=== PATIENT | male | born 1950 | race African-American/Black ===

== ENCOUNTER 2019-01-14 22:19 | Inpatient (IN) | payer BC, MEDICAID ==
[~2019-01-14] VITALS: Ht 182.9 cm; Wt 108.9 kg
--- NOTE | 2019-01-14 22:19 | NUR ---
Patient ANN HARKINS from [facility], transferred to bed 9. RN evaluating patient at bedside.
[2019-01-14 22:20] VITALS: BP 128/52
--- NOTE | 2019-01-14 22:25 | NUR ---
68/M BIBA FROM [facility] FOR POSSIBLE G-TUBE DISPLACEMENT. PT ARRIVES TO ED, APHASIC, GCS 10 ([id number]), BEDBOUND WITH R SIDED DEFICIT AND L SIDED WEAKNESS FROM PREVIOUS CVA, PERRL. SKIN APPROPRIATE TO ETHNICITY, WARM AND DRY. SPO2 95% ON RA, RR 25 EVEN AND SLIGHTLY LABORED WITH GRUNTING. LUNG SOUNDS CLEAR BL. GTUBE NOTED, BS ACTIVE X4, ABD FIRM ROUND LARGE AND DISTENDED. HX CVA, HTN, HLD, GOUT
[2019-01-14] MEDS ORDERED: HYDR100T79 PEG (22:51)
[2019-01-14] MEDS ORDERED: ATOR40TA PEG (22:51)
[2019-01-14] MEDS ORDERED: AMLO5TAB PEG (22:51)
[2019-01-14] MEDS ORDERED: MODA200T52 PEG (22:51)
[2019-01-14] MEDS ORDERED: METO50TE2 PEG (22:51)
[2019-01-14] MEDS ORDERED: CLOP75TA55 PEG (22:51)
[2019-01-14] MEDS ORDERED: LORA-476 PEG (22:51)
[2019-01-14] MEDS ORDERED: ASPI-1718 PEG (22:51)
--- NOTE | 2019-01-14 22:55 | NUR ---
Patient taken to CT scan via gurney by veronica, accompanied by RN.
--- NOTE | 2019-01-14 23:04 | NUR ---
Patient returned from CT scan. RN re-evaluating patient at bedside.
--- NOTE | 2019-01-14 23:23 | NUR ---
Pt restless in gurney, taking off gown and cables. soiled diaper removed, hilario care provided with assistance of java analyst. Pt placed into new gown, placed into position of comfort. Warm blanket provided.
[2019-01-14] MEDS ORDERED: NACL 0.9% 1,000 ML IV ONE (23:30)
[2019-01-14 23:36] LABS: HEMOGLOBIN 14.1 g/dL (12.0-18.0); MEAN CORPUSCULAR HEMOGLOBIN 30 pg (27-31); MEAN CORPUSCULAR HGB CONC 32 g/dL (33-37); MEAN CORPUSCULAR VOLUME 92.4 fL (80-94); PLATELET COUNT (AUTO) 327 K/uL (140-450); RED BLOOD CELL COUNT(AUTO) 4.76 MIL/uL (4.20-6.10); RED CELL DISTRIBUTION WIDTH 14.7 % (11.6-13.7); WHITE BLOOD COUNT (AUTO) 12.8 K/uL (4.8-10.8)
--- NOTE | 2019-01-14 23:40 | NUR ---
PT WITH JEFF ALLEN MD MADE AWARE. EKG TO BE ORDERED, 1L NS BOLUS TO BE GIVEN.
[2019-01-14 23:47] LABS: LYMPHOCYTES % (MANUAL) 6 % (20-46); MONOCYTES % (MANUAL) 1 % (5-12)
[2019-01-14 23:48] LABS: ANION GAP 13.6 (8-16); CARBON DIOXIDE 28.8 mmol/L (21-32); CREATININE 1.7 mg/dL (0.7-1.3); POTASSIUM 4.4 mmol/L (3.5-5.1)
--- NOTE | 2019-01-14 23:49 | NUR ---
PT LAYING IN BED, SPO2 98% ON RA, RR 21 EVEN AND SLIGHTLY LABORED WITH GRUNTING, PT MILDLY RESTLESS, SWINGING LEFT ARM OCCASIONALLY. VS NOTED.
[2019-01-14 23:53] LABS: TOTAL BILIRUBIN 0.7 mg/dL (0.0-1.0)
--- NOTE | 2019-01-15 | NUR ---
PT GTUBE IN PLACE VERIFIED WITH AUSCULATION AND 30ML RESIDUAL, ABLE TO FLUSH.
--- NOTE | 2019-01-15 01:40 | NUR ---
PT LAYING IN BED, LETHARGIC, RR EVEN WITH MILD TACHYPNEA. PT REMAINS WITH BIGEMINY. ER MD MADE AWARE. PER ER MD, AMIODARONE NOT INDICATED AT THIS TIME. ANOTHER 1L NS BOLUS ORDERED, WILL CARRY OUT
[2019-01-15] MEDS ORDERED: NACL 0.9% 1,000 ML IV ONE (01:55)
--- NOTE | 2019-01-15 02:30 | NUR ---
Dr. Chan evaluating patient at bedside.
[2019-01-15] MEDS ORDERED: cefTRIAXone 1,000 MG in DEXT 5% MINI-BAG PLUS 50 ML IV ONE (02:35)
[2019-01-15] MEDS ORDERED: DOCUSATE SODIUM 100 MG GELCAP PO PRN (02:35)
[2019-01-15] MEDS ORDERED: ONDANSETRON 4 MG/2 ML VIAL IM/IVP PRN (02:35)
[2019-01-15] MEDS ORDERED: MORPHINE SULFATE 2 MG/ML SYR IVP PRN (02:35)
[2019-01-15] MEDS ORDERED: HYDROcodone/APAP 5/325 MG 1 TAB TAB PO PRN (02:35)
[2019-01-15] MEDS ORDERED: ACETAMINOPHEN 325 MG TAB PO PRN (02:35)
--- NOTE | 2019-01-15 02:40 | NUR ---
environmental services tech at bedside.
[2019-01-15] MEDS ORDERED: cefTRIAXone 1,000 MG VIAL ONE (02:47)
[2019-01-15 02:54] LABS: APPEARANCE,URINE HAZY (CLEAR); BILIRUBIN,URINE NEGATIVE (NEGATIVE); BLOOD, URINE 2+ (NEGATIVE); COLOR,URINE YELLOW (YELLOW); LEUKOCYTE ESTERASE ,URINE 1+ (NEGATIVE); NITRITE, URINE NEGATIVE (NEGATIVE); UGLUCOSE NEGATIVE (NEGATIVE)
[2019-01-15 03:04] LABS: BARBITURATE, URINE NEG. ng/ml (NEG <=200); BENZODIAZEPINE, URINE NEG. ng/mL (NEG <=200); CANNABINOID, URINE NEG. ng/mL (NEG <=50); COCAINE, URINE NEG. ng/mL (NEG <=300); OPIATE, URINE NEG. ng/mL (NEG <=2000); PHENCYCLIDINE SCREEN,URINE NEG. ng/mL (NEG <=25)
[2019-01-15 03:09] LABS: RBC,URINE 0-5 (RARE) /HPF (0-5); WBC,URINE 60-80 /HPF (0-5)
--- NOTE | 2019-01-15 03:15 | NUR ---
Patient will be admitted to care of DR. GARCIA. Admited to TELE. Will go to room 124A. Belongings list completed. Report to ANABELLA LINCOLN.
[2019-01-15 03:20] VITALS: BP 136/94
[2019-01-15] MEDS ORDERED: NACL 0.45% 1,000 ML IV SCH (03:20)
--- NOTE | 2019-01-15 03:20 | NUR ---
RECEIVED REPORT FROM ER NURSE ROMAN. NO SOB NO S/S OF DISTRESS ON RA. IV NOTED RAC 20G. PT HAS RIGHT SIDE PARALYSIS. BED LOWERED CALL LIGHT WITHIN REACH WILL CONTINUE TO MONITOR.
[2019-01-15 03:22] LABS: CHOL/HDL RATIO 3.6 (1-4.5); THYROID STIMULATING HORMONE 4.3 uIU/mL (0.34-3.74)
[2019-01-15 03:23] LABS: PROTHROMBIN TIME 9.5 secs (10.8-13.4)
[2019-01-15] MEDS ORDERED: METO50TA21 PEG (03:33)
[2019-01-15] MEDS ORDERED: ALBUTEROL SULFATE/IPRATROPIU 3 ML SOL IH PRN (04:15)
[2019-01-15] MEDS: DEXT 5% / NACL 0.45% 1,000 ML IV SCH ×2 (04:39→08:05)
[2019-01-15] MEDS ORDERED: LORazepam 1 MG TAB PEG PRN (05:00)
[2019-01-15] MEDS ORDERED: LORazepam 1 MG TAB PEG SCH (05:00)
[2019-01-15] MEDS: hydrALAZINE 25 MG TAB PEG SCH ×4 (06:32→23:43)
--- NOTE | 2019-01-15 07:21 | NUR ---
ENDORSED REPORT TO DAYSHIFT NURSE AT BEDSIDE FOR CONTINUITY OF CARE.
--- NOTE | 2019-01-15 07:22 | NUR ---
RECEIVED BEDSIDE REPORT FROM LEARNING SOLUTIONS SPECIALIST NURSE. PATIENT IS SLEEPING. NO SIGNS OF DISTRESS ON RA. PATIENT IS APHASIC. BEDBOUND, FALL RISK PROTOCOL IN PLACE. R SIDE PARALYSIS. GTUBE IN PLACE. NO FEEDING. NPO EXCEPT MEDS. SKIN IS INTACT. R AC 20G D5 1/2NS AT 80. CLEAN, DRY AND INTACT. PATIENT IS INCONTINENT. BED IN LOW POSITION. CALL LIGHT WITHIN REACH. WILL CONTINUE TO MONITOR THE PATIENT.
[2019-01-15 08:00] VITALS: BP 136/88
[2019-01-15 08:01] LABS: ANION GAP 13.7 (8-16); CARBON DIOXIDE 25.5 mmol/L (21-32); CREATININE 1.5 mg/dL (0.7-1.3); MAGNESIUM 2.7 mg/dL (1.8-2.4); PHOSPHORUS 3.2 mg/dL (2.5-4.9); POTASSIUM 4.2 mmol/L (3.5-5.1)
[2019-01-15 08:15] LABS: HEMATOCRIT 39.1 % (36-52); HEMOGLOBIN 12.5 g/dL (12.0-18.0); MEAN CORPUSCULAR HEMOGLOBIN 30 pg (27-31); MEAN CORPUSCULAR HGB CONC 32 g/dL (33-37); MEAN CORPUSCULAR VOLUME 91.9 fL (80-94); PLATELET COUNT (AUTO) 279 K/uL (140-450); RED BLOOD CELL COUNT(AUTO) 4.26 MIL/uL (4.20-6.10); RED CELL DISTRIBUTION WIDTH 14.5 % (11.6-13.7); WHITE BLOOD COUNT (AUTO) 13.9 K/uL (4.8-10.8)
--- NOTE | 2019-01-15 08:45 | NUR ---
GOT TELEPHONE CONSENT FROM BROTHER, CULLEN. FOR GURVINDER TO SEND MEDICAL RECORDS. CHARGE NURSE MARIA DEL CARMEN, WAS SECOND ASSEMBLY MACHINE TOOL SETTER
[2019-01-15] MEDS ORDERED: LACTOBACILLUS RHAMNOSUS GG 1 EACH CAP PO SCH (09:00)
[2019-01-15 09:12] LABS: LYMPHOCYTES % (MANUAL) 5 % (20-46); MONOCYTES % (MANUAL) 7 % (5-12)
--- NOTE | 2019-01-15 09:24 | NUR ---
PATIENT HAS BEEN SCREENED AND CATEGORIZED HIGH NUTRITION RISK. PATIENT WILL BE SEEN WITHIN 1-2 DAYS OF ADMISSION. 01/15/19-01/16/[address]
[2019-01-15] MEDS: CLOPIDOGREL 75 MG TAB PEG SCH (09:54)
[2019-01-15] MEDS: ASPIRIN 81 MG TAB.CHEW PEG SCH (09:55)
[2019-01-15] MEDS: METOPROLOL 50 MG TAB PEG SCH ×2 (09:55→20:39)
[2019-01-15] MEDS: amLODIPine 5 MG TAB PEG SCH ×2 (09:55→20:39)
--- NOTE | 2019-01-15 10:10 | NUR ---
CHECKED FOR GTUBE PLACEMENT W STUDENT NURSE. SWOOSH HEARD. NO RESIDUAL. CRUSHED AND ADMINISTERED MEDS. FLUSHED BEFORE AND AFTER MED ADMINISTRATION. PATIENT TOLERATED WELL. HEPARIN GIVEN. PATIENT TOLERATED WELL. WILL CONTINUE TO MONITOR THE PATIENT. BED IN LOW POSITION. CALL LIGHT WITHIN REACH, WILL CONTINUE TO MONITOR.
--- NOTE | 2019-01-15 10:51 | NUR ---
GAVE ATIVAN. PATIENT WHEN AWOKEN BECOMES AGITATED AND PULLS ON LINES, REMOVES TELE MONITOR. WE NEED TO DO A CT OF HEAD. DR PINK SAID OK TO GIVE ATIVAN BEFORE CT OF HEAD
--- NOTE | 2019-01-15 11:00 | NUR ---
B/P IS 185/102. DR DAMON MADE AWARE. TOLD HIM I GAVE HIM ATIVAN FOR AGITATION AND TO HELP PATIENT GET CT OF HEAD DONE. HE SAID OK TO KEEP IT UNDER 200 AT THIS TIME IN CASE PATIENT IS HAVING A CVA. HE SAID TO WAIT FOR HEAD CT. DR PINK ALSO MADE AWARE OF B/P AND DR RUBIO RECOMMENDATIONS AT THIS TIME.
--- NOTE | 2019-01-15 11:46 | NUR ---
PATIENT IS BACK FROM CT SCAN. HE WAS MOVING A LITTLE DURING THE SCAN, PATIENT AGITATED WHEN TRANSFERRED TO THE CT MACHINE. PATIENT B/P WHEN BACK TO THE ROOM 163/90. WILL CONTINUE TO MONITOR THE PATIENT. PATIENT SLEEPING AT THIS TIME
[2019-01-15 12:00] VITALS: BP 163/90
[2019-01-15] MEDS ORDERED: MAGNESIUM CITRATE 300 ML BTL PEG SCH (12:49)
[2019-01-15] MEDS ORDERED: ACETAMINOPHEN 650 MG/20.3 ML UDC PEG PRN (12:50)
--- NOTE | 2019-01-15 12:53 | NUR ---
PATIENT KEEPS PULLING OFF GOWN AND TELE MACHINE. KEEP REMINDING AND REORIENTING PATIENT THAT HE IS IN THE HOSPITAL AND NEEDS TO BE MONITORED. PATIENT BACK TO SLEEP
[2019-01-15] MEDS: PIPER/TAZO 3.375GM/D5W PREMIX 50 ML IV SCH ×2 (13:06→20:39)
--- NOTE | 2019-01-15 13:08 | NUR ---
CHECKED FOR GTUBE PLACEMENT USING SWOOSH. SWOOSH HEARD. CRUSHED AND ADMINISTERED MEDS. FLUSHED BEFORE AND AFTER. PATIENT TOLERATED WELL. WILL CONTINUE TO MONITOR THE PATIENT.
--- NOTE | 2019-01-15 13:33 | NUR ---
PATIENT PULLED OUT GTUBE. NEW GTUBE PLACED BY DR PARIKH. DR PINK TO ORDER KUB TO CHECK FOR PLACEMENT. PHARMACY ASSOCIATE AT BEDSIDE. WILL GIVE ATIVAN BEFORE ECHO
--- NOTE | 2019-01-15 13:35 | NUR ---
PATIENT CONTINUES TO TRY AND PULL OUT TUBES AND OTHER MEDICAL DEVICES LIKE TELE MONITOR. LE MITTEN RESTRAINT PLACED ON PATIENT. R ARM IS UNABLE TO MOVE. TRIED OTHER ALTERNATIVES LIKE DISTRACTION, REORIENTATION, TOILETING, PATIENT STILL CONTINUES TO PULL OUT LINES.
--- NOTE | 2019-01-15 13:47 | NUR ---
01/15/19 RD INITIAL ASSESSMENT COMPLETED PLEASE REFER TO NUTRITION ASSESSMENT UNDER CARE ACTIVITY FOR ESTIMATED NUTRITIONAL NEEDS. RD RECOMMENDATIONS: 1.OSMOLITE 1.5 AT 60 ML/HR TO PROVIDE 1440 ML TOTAL VOLUME, 2160 KCAL, 90 GM OF PROTEIN, AND 1097 ML OF FREE WATER. CONSIDER 250 ML OF FREE WATER Q6H. --ADEQUATE TO MEET 97% OF ESTIMATED ENERGY NEEDS AND 100% OF ESTIMATED PROTEIN NEEDS. 2. RD WILL F/U 2-3 DAYS; HIGH RISK. NAGA NORIEGA, RD
[2019-01-15] MEDS ORDERED: LORazepam 2 MG/ML VIAL IVP SCH (13:50)
--- NOTE | 2019-01-15 15:00 | NUR ---
STUDENT PLACED CONDOM CATH ON PATIENT. DR PINK SAID OK TO PUT CONDOM CATH
[2019-01-15 16:00] VITALS: BP 166/80
--- NOTE | 2019-01-15 16:16 | NUR ---
PATIENT IS SLEEPING. WILL CONTINUE TO MONITOR. NO SIGNS OF DISTRESS
--- NOTE | 2019-01-15 18:33 | NUR ---
administered meds. patient tolerated well. will continue to monitor the patient.
--- NOTE | 2019-01-15 19:05 | NUR ---
GAVE BEDSIDE REPORT TO OCULAR CARE TECHNICIAN NURSE. PATIENT ENDORSED IN STABLE CONDITION
--- NOTE | 2019-01-15 19:06 | NUR ---
RECEIVED REPORT FROM DAY SHIFT NURSE DANIEL-RN AT BEDSIDE. PT APHASIC, ON ROOM AIR WITH RIGHT AC #20G RUNNING D6-NS0.45% @80ML/HR WITH RIGHT SIDED WEAKNESS AND LEFT HAND MITTEN RESTRAINT NON-BEHAVIORAL. G-TUBE IN PLACE WITH 20ML RESIDUAL. NO S/S OF RESPIRATORY DISTRESS OR DISCOMFORT NOTED AT THIS TIME. BED IN LOWEST POSITION, BED BREAKS ON, BOTH SIDE RAILS UP AND BOTH FALL AND ASPIRATION PRECAUTIONS IN PLACE. BEDSIDE TABLE AND CALL LIGHT ARE WITHIN REACH. WILL CONTINUE TO MONITOR.
[2019-01-15 20:00] VITALS: BP 165/79
--- NOTE | 2019-01-15 20:00 | NUR ---
VITAL SIGNS TAKEN AND TOLERATED WELL. ELEVATED BP NOTED. NO S/S OF RESPIRATORY DISTRESS OR DISCOMFORT NOTED AT THIS TIME. WILL CONTINUE TO MONITOR.
[2019-01-15] MEDS: ATORVASTATIN 20 MG TAB PEG SCH (20:39)
--- NOTE | 2019-01-15 20:40 | NUR ---
SCHEDULED MEDICATION GIVEN AND TOLERATED WELL. NO S/S OF RESPIRATORY DISTRESS OR DISCOMFORT NOTED AT THIS TIME. WILL CONTINUE TO MONITOR.
--- NOTE | 2019-01-15 21:00 | NUR ---
G-TUBE FEEDING OSMOLITE 1.5 RUNNING AT 20ML/HR WITH WATER FLUSHES AT 250ML Q6H. HOLD IF RESIDUAL ABOVE 200, CHECK AN HOUR LATER AND RESUME IF RESIDUAL <50ML. PT TOLERATING WELL. NO S/S OF RESPIRATORY DISTRESS OR DISCOMFORT NOTED AT THIS TIME. WILL CONTINUE TO MONITOR.
--- NOTE | 2019-01-15 23:00 | NUR ---
PT RESTING IN BED. NO S/S OF RESPIRATORY DISTRESS OR DISCOMFORT NOTED AT THIS TIME. WILL CONTINUE TO MONITOR.
[2019-01-15] MEDS: NACL 0.9% 1,000 ML IV SCH (23:24)
--- NOTE | 2019-01-15 23:43 | NUR ---
VITAL SIGNS TAKEN, SCHEDULED MEDICATION GIVEN AND TOLERATED WELL. NO S/S OF RESPIRATORY DISTRESS OR DISCOMFORT NOTED AT THIS TIME. WILL CONTINUE TO MONITOR.
[2019-01-16] VITALS (7 sets, daily range): BP systolic 150–180; BP diastolic 77–93
--- NOTE | 2019-01-16 02:00 | NUR ---
PT CONTINUES TO SLEEP IN BED. NO S/S OF RESPIRATORY DISTRESS OR DISCOMFORT NOTED AT THIS TIME. WILL CONTINUE TO MONITOR.
--- NOTE | 2019-01-16 04:00 | NUR ---
VITAL SIGNS TAKEN AND TOLERATED WELL. NO S/S OF RESPIRATORY DISTRESS OR DISCOMFORT NOTED AT THIS TIME. WILL CONTINUE TO MONITOR.
[2019-01-16] MEDS: PIPER/TAZO 3.375GM/D5W PREMIX 50 ML IV SCH ×2 (04:30→13:05)
--- NOTE | 2019-01-16 04:30 | NUR ---
SCHEDULED MEDICATION ZOSYN GIVEN AND TOLERATED WELL. NO S/S OF RESPIRATORY DISTRESS OR DISCOMFORT NOTED AT THIS TIME. WILL CONTINUE TO MONITOR.
[2019-01-16] MEDS: hydrALAZINE 25 MG TAB PEG SCH ×3 (05:06→18:23)
--- NOTE | 2019-01-16 05:06 | NUR ---
SCHEDULED MEDICATION GIVEN AND TOLERATED WELL. NO S/S OF RESPIRATORY DISTRESS OR DISCOMFORT NOTED AT THIS TIME. WILL CONTINUE TO MONITOR.
--- NOTE | 2019-01-16 07:10 | NUR ---
ENDORSED PT CARE TO DAY SHIFT NURSE DANIEL-RN FOR CONTINUITY OF CARE.
--- NOTE | 2019-01-16 07:10 | NUR ---
RECEIVED BEDSIDE REPORT FROM SHELTER DIRECTOR NURSE. PATIENT IS SLEEPING. NO SIGNS OF DISTRESS ON RA. PATIENT IS APHASIC. BEDBOUND, FALL RISK PROTOCOL IN PLACE. R SIDE PARALYSIS. GTUBE IN PLACE. FEEDING INCREASED TO 30. SKIN IS INTACT. R AC 20G NS 10. CLEAN, DRY AND INTACT. PATIENT IS INCONTINENT. BED IN LOW POSITION. CALL LIGHT WITHIN REACH. WILL CONTINUE TO MONITOR THE PATIENT. MITTEN ON L HAND. PATIENT PULLS OUT LINES.
--- NOTE | 2019-01-16 07:10 | NUR ---
MADISON DIRECTOR TOXICOLOGY NURSE INCREASED FEEDING TO 30
[2019-01-16 07:54] LABS: ANION GAP 7.7 (8-16); BASOPHILS % (AUTO) 0.4 % (0.0-2.0); CARBON DIOXIDE 27.2 mmol/L (21-32); CREATININE 1.6 mg/dL (0.7-1.3); EOSINOPHILS # (AUTO) 0.2 K/uL (0-0.4); EOSINOPHILS % (AUTO) 1.7 % (0.0-4.0); HEMATOCRIT 37.9 % (36-52); HEMOGLOBIN 12.2 g/dL (12.0-18.0); LYMPHOCYTES # (AUTO) 0.7 K/uL (2.0-11.5); LYMPHOCYTES % (AUTO) 5.3 % (20.5-51.1); MEAN CORPUSCULAR HEMOGLOBIN 30 pg (27-31); MEAN CORPUSCULAR HGB CONC 32 g/dL (33-37); MEAN CORPUSCULAR VOLUME 92.4 fL (80-94); MONOCYTES # (AUTO) 1.2 K/uL (0.8-1.0); MONOCYTES % (AUTO) 8.5 % (1.7-9.3); NEUTROPHILS # (AUTO) 11.5 K/uL (1.8-7.7); NEUTROPHILS % (AUTO) 84.1 % (42.2-75.2); PLATELET COUNT (AUTO) 290 K/uL (140-450); POTASSIUM 3.9 mmol/L (3.5-5.1); RED BLOOD CELL COUNT(AUTO) 4.11 MIL/uL (4.20-6.10); RED CELL DISTRIBUTION WIDTH 14.9 % (11.6-13.7); WHITE BLOOD COUNT (AUTO) 13.6 K/uL (4.8-10.8)
[2019-01-16 08:05] LABS: MAGNESIUM 2.9 mg/dL (1.8-2.4); PHOSPHORUS 2.8 mg/dL (2.5-4.9)
[2019-01-16] MEDS: LACTOBACILLUS RHAMNOSUS GG 1 EACH CAP PEG SCH (09:22)
[2019-01-16] MEDS: BISACODYL 5 MG TABEC PEG SCH (09:23)
[2019-01-16] MEDS: ASPIRIN 81 MG TAB.CHEW PEG SCH (09:23)
[2019-01-16] MEDS: amLODIPine 5 MG TAB PEG SCH ×2 (09:24→21:03)
[2019-01-16] MEDS: CLOPIDOGREL 75 MG TAB PEG SCH (09:24)
[2019-01-16] MEDS: METOPROLOL 50 MG TAB PEG SCH ×2 (09:24→21:03)
--- NOTE | 2019-01-16 09:33 | NUR ---
CHECKED FOR GTUBE PLACEMENT USING SWOOSH. SWOOSH HEARD. CRUSHED AND ADMINISTERED MEDS. FLUSHED BEFORE AND AFTER. PATIENT TOLERATED WELL. WILL CONTINUE TO MONITOR THE PATIENT.
--- NOTE | 2019-01-16 11:00 | NUR ---
CHECKED GTUBE PLACEMENT USING SWOOSH. SWOOSH HEARD. 5ML RESIDUAL PLACED BACK TO PATIENT. INCREASED FEEDING TO 40. WILL CONTINUE TO MONITOR THE PATIENT
--- NOTE | 2019-01-16 13:08 | NUR ---
CHECKED GTUBE PLACEMENT USING SWOOSH. SWOOSH HEARD. 5ML RESIDUAL. PLACED BACK TO PATIENT. CRUSHED AND ADMINISTERED MEDS. FLUSHED BEFORE AND AFTER. PATIENT TOLERATING WELL. ZOSYN STARTED. IV IS CLEAN, DRY AND INTACT.
--- NOTE | 2019-01-16 13:44 | NUR ---
ADMINISTERED IVPB ROCEPHIN. PATIENT TOLERATED WELL. NO SIGNS OF DISTRESS. WILL CONTINUE TO MONITOR THE PATIENT.
--- NOTE | 2019-01-16 15:00 | NUR ---
CHECKED GTUBE PLACEMENT USING SWOOSH. SWOOSH HEARD. NO RESIDUAL. INCREASED FEEDING TO 50. WILL CONTINUE TO MONITOR THE PATIENT.
--- NOTE | 2019-01-16 17:20 | NUR ---
PATIENT CLEANED UP. PATIENT CONTINUES TO SWING ARMS AND ATTEMPT TO PULL ON GTUBE. RESTRAINTS STILL NEEDED AT THIS TIME.
[2019-01-16] MEDS ORDERED: cloNIDine 0.1 MG TAB ONE (17:52)
--- NOTE | 2019-01-16 18:26 | NUR ---
current b/p 431/87
[2019-01-16] MEDS ORDERED: hydrALAZINE 20 MG/ML VIAL IVP ONE (18:30)
--- NOTE | 2019-01-16 19:00 | NUR ---
GAVE BEDSIDE REPORT TO CONSTRUCTION WORKER NURSE. PATIENT ENDORSED IN STABLE CONDITION
--- NOTE | 2019-01-16 19:00 | NUR ---
SWOOSH HEARD. NO RESIDUAL. FEEDING INCREASED TO 60.
--- NOTE | 2019-01-16 19:30 | NUR ---
RECEIVED REPORT FROM DAYSHIFT NURSE AT BEDSIDE FOR CONTINUITY CARE. PT AWAKE NOT ALERT DOES NOT RESPOND TO NAME. PT IV NOTED RAC 20G TKO. NO SOB NO S/S OF DISTRESS ON RA. TUBE FEEDING OSMOLITE 60ML/HR Q250ML WATER FLUSH Q6H. BED LOWERED PT IS ON LEFT HAND MITTEN RESTRAINT. CALL LIGHT WITHIN REACH WILL CONTINUE TO MONITOR.
[2019-01-16] MEDS: ATORVASTATIN 20 MG TAB PEG SCH (21:04)
[2019-01-16] MEDS: cloNIDine 0.1 MG TAB PO SCH (21:04)
[2019-01-17] VITALS: BP 159/77
[2019-01-17] MEDS ORDERED: hydrALAZINE 25 MG TAB PEG SCH
[2019-01-17] MEDS: hydrALAZINE 25 MG TAB PEG SCH ×4 (01:00→16:57)
[2019-01-17] MEDS: NACL 0.9% 1,000 ML IV SCH (01:05)
[2019-01-17 04:00] VITALS: BP 157/87
[2019-01-17] MEDS: cloNIDine 0.1 MG TAB PO SCH ×3 (05:26→20:34)
--- NOTE | 2019-01-17 07:20 | NUR ---
RECEIVED REPORT FROM SHOT HOLE DRILLER RN AT BEDSIDE FOR CONTINUITY CARE. PT OPENS EYES SPONTANEOUSLY, PT CONFUSED, NOT RESPONDING TO HIS NAME. NO S/S OF ACUTE DISTRESS NOTED ON ROOM AIR. IV CATH NOTED TO R AC 20G, RUNNING NS AT 10ML/HR, ASYMPTOMATIC. TUBE FEEDING RUNNING OSMOLITE 60ML/HR, 250ML WATER FLUSH Q6H. BED IN LOWEST POSITION, SEMI-TORRE, PT IS ON LEFT HAND MITTEN RESTRAINT. G TUBE SITE IS CLEAN, DRESSING IS SOILED A LITTLE, WILL CHANGE LATER. BOWEL SOUNDS ACTIVE. ABD IS SOFT, LARGE AND ROUND. CALL LIGHT WITHIN REACH. WILL CONTINUE TO MONITOR.
--- NOTE | 2019-01-17 07:26 | NUR ---
ENDORSED REPORT TO [facility] DAYSHIFT NURSE AT BEDSIDE FOR CONTINUITY OF CARE.
[2019-01-17 07:58] LABS: BASOPHILS % (AUTO) 0.1 % (0.0-2.0); EOSINOPHILS # (AUTO) 0.3 K/uL (0-0.4); EOSINOPHILS % (AUTO) 2.5 % (0.0-4.0); HEMATOCRIT 35.5 % (36-52); HEMOGLOBIN 11.3 g/dL (12.0-18.0); LYMPHOCYTES # (AUTO) 0.9 K/uL (2.0-11.5); LYMPHOCYTES % (AUTO) 7.1 % (20.5-51.1); MEAN CORPUSCULAR HEMOGLOBIN 29 pg (27-31); MEAN CORPUSCULAR HGB CONC 32 g/dL (33-37); MEAN CORPUSCULAR VOLUME 92.3 fL (80-94); MONOCYTES # (AUTO) 0.9 K/uL (0.8-1.0); MONOCYTES % (AUTO) 7.2 % (1.7-9.3); NEUTROPHILS # (AUTO) 10.2 K/uL (1.8-7.7); NEUTROPHILS % (AUTO) 83.1 % (42.2-75.2); PLATELET COUNT (AUTO) 290 K/uL (140-450); RED BLOOD CELL COUNT(AUTO) 3.85 MIL/uL (4.20-6.10); RED CELL DISTRIBUTION WIDTH 14.9 % (11.6-13.7); WHITE BLOOD COUNT (AUTO) 12.2 K/uL (4.8-10.8)
[2019-01-17 08:00] VITALS: BP 142/75
[2019-01-17 08:00] LABS: ANION GAP 10.4 (8-16); CARBON DIOXIDE 27.5 mmol/L (21-32); CREATININE 1.5 mg/dL (0.7-1.3); POTASSIUM 3.9 mmol/L (3.5-5.1)
--- NOTE | 2019-01-17 08:00 | NUR ---
VITALS TAKEN, G TUBE RESIDUAL 5ML. 150ML AIR REMOVED.
[2019-01-17 08:03] LABS: MAGNESIUM 2.7 mg/dL (1.8-2.4); PHOSPHORUS 3.9 mg/dL (2.5-4.9)
[2019-01-17] MEDS: DEXT 5% / NACL 0.45% 1,000 ML IV SCH ×2 (08:30→20:33)
--- NOTE | 2019-01-17 08:35 | NUR ---
SCREEN FOR LOW LARISA SCALE ALL INTERVENTIONS IN PLACE: -TURN AND REPOSITION PATIENT Q 2H OFFLOAD LEFT AND RIGHT HIPS -ASSESS AND MONITOR SKIN CONDITION DURING POSITION CHANGE, PLEASE PAY ATTENTION TO FEET AND HEELS -OFFLOAD BILATERAL HEELS BY PLACING PILLOWS UNDER CALVES AT ALL TIMES, UNLESS OTHERWISE CONTRAINDICATED -PRESSURE REDISTRIBUTION SURFACE THERAPY -KEEP SKIN CLEAN AND DRY AT ALL TIMES.
[2019-01-17] MEDS: amLODIPine 5 MG TAB PEG SCH ×2 (09:37→20:35)
[2019-01-17] MEDS: CLOPIDOGREL 75 MG TAB PEG SCH (09:37)
[2019-01-17] MEDS: ASPIRIN 81 MG TAB.CHEW PEG SCH (09:38)
[2019-01-17] MEDS: BISACODYL 5 MG TABEC PEG SCH (09:38)
[2019-01-17] MEDS: LACTOBACILLUS RHAMNOSUS GG 1 EACH CAP PEG SCH (09:38)
[2019-01-17] MEDS: METOPROLOL 50 MG TAB PEG SCH ×2 (09:39→20:34)
--- NOTE | 2019-01-17 10:30 | NUR ---
BED BATH GIVEN, CHANGED LINENS AND CHUX. PT WAS REPOSITIONED. CHANGED G TUBE DRESSING.
[2019-01-17 12:00] VITALS: BP 159/75
[2019-01-17 16:00] VITALS: BP 145/67
--- NOTE | 2019-01-17 16:05 | NUR ---
VITALS TAKEN, G TUBE RESIDUAL 5ML. 100ML AIR REMOVED.
--- NOTE | 2019-01-17 17:53 | NUR ---
CHANGED G TUBE FEEDING TUBING AND FEEDING BOTTLE. STARTED FEEDING OSMOLITE AT 60ML/HR, AND 155ML H2O FLUSH Q6H.
[2019-01-17 18:45] LABS: ANION GAP 11.6 (8-16); CARBON DIOXIDE 30.1 mmol/L (21-32); CREATININE 1.4 mg/dL (0.7-1.3); POTASSIUM 3.7 mmol/L (3.5-5.1)
--- NOTE | 2019-01-17 19:10 | NUR ---
ENDORSED PT TO TRACK MANAGER RN AT BEDSIDE FOR CONTINUITY OF CARE. PT IN STABLE CONDITION.
--- NOTE | 2019-01-17 19:11 | NUR ---
RECEIVED PT FROM AM SHIFT. PT ALERT ,O X 1. PT APHASIC NONAMBULATORY, WITH RIGHT SIDED PARALYSIS. PT WITH MITTENS ON THE LEFT HAND FOR NON-BEHAVIORAL PREVENTION, CIRCULATION INTACT. ON TELE UNIT. VOIDING FREELY. PT HAS NGT FEEDING ONGOING AND IVF IN PLACE. PLACED IN LOWEST BED POSITION. CALL LIGHT WITHIN EASY REACH. WILL CONTINUE TO MONITOR
[2019-01-17 20:00] VITALS: BP 162/73
--- NOTE | 2019-01-17 20:30 | NUR ---
College Coach Notes: I attempted to do screen with Patient. Patient is non-verbal / unable to communicate needs during the time. I will contact Patient's family in contact Inf. I called Patient's Brother Delroy at listed on emergency contact. No response during the call, I was unable to leave a voice MSG due to mailbox full. (SELLING MANAGER/Machine Stoppage Frequency Checker) will follow up with another call.
[2019-01-17] MEDS: ATORVASTATIN 20 MG TAB PEG SCH (20:34)
--- NOTE | 2019-01-17 21:00 | NUR ---
WITHHELD LASIX DUE BP WAS 99/36. JERICHO AWARE
[2019-01-18] VITALS: BP 152/74
[2019-01-18] MEDS: hydrALAZINE 25 MG TAB PEG SCH ×4 (00:54→18:13)
--- NOTE | 2019-01-18 00:54 | NUR ---
BP RECHECKED 159/75 [facility] APRESOLINE GIVEN
--- NOTE | 2019-01-18 02:30 | NUR ---
PT SLEEPING. MONITORED FOR BLOOD PRESSURE, AND GIVEN BP MEDS ORDERED
[2019-01-18 04:00] VITALS: BP 140/74
[2019-01-18] MEDS: cloNIDine 0.1 MG TAB PO SCH ×3 (06:15→21:00)
[2019-01-18 06:18] LABS: BASOPHILS # (AUTO) 0.1 K/uL (0.00-0.22); BASOPHILS % (AUTO) 0.7 % (0.0-2.0); EOSINOPHILS # (AUTO) 0.3 K/uL (0-0.4); EOSINOPHILS % (AUTO) 2.8 % (0.0-4.0); HEMATOCRIT 36.1 % (36-52); HEMOGLOBIN 11.5 g/dL (12.0-18.0); LYMPHOCYTES # (AUTO) 0.7 K/uL (2.0-11.5); LYMPHOCYTES % (AUTO) 6.4 % (20.5-51.1); MEAN CORPUSCULAR HEMOGLOBIN 30 pg (27-31); MEAN CORPUSCULAR HGB CONC 32 g/dL (33-37); MEAN CORPUSCULAR VOLUME 92.9 fL (80-94); MONOCYTES # (AUTO) 0.8 K/uL (0.8-1.0); MONOCYTES % (AUTO) 6.8 % (1.7-9.3); NEUTROPHILS # (AUTO) 9.4 K/uL (1.8-7.7); NEUTROPHILS % (AUTO) 83.3 % (42.2-75.2); PLATELET COUNT (AUTO) 280 K/uL (140-450); RED BLOOD CELL COUNT(AUTO) 3.88 MIL/uL (4.20-6.10); RED CELL DISTRIBUTION WIDTH 14.8 % (11.6-13.7); WHITE BLOOD COUNT (AUTO) 11.4 K/uL (4.8-10.8)
[2019-01-18 06:26] LABS: ANION GAP 12.2 (8-16); CREATININE 1.4 mg/dL (0.7-1.3); POTASSIUM 4.2 mmol/L (3.5-5.1)
[2019-01-18 06:42] LABS: MAGNESIUM 2.7 mg/dL (1.8-2.4)
--- NOTE | 2019-01-18 07:10 | NUR ---
RECEIVED REPORT FROM WELT TREATER RN AT BEDSIDE FOR CONTINUITY CARE. PT OPENS EYES SPONTANEOUSLY, PT CONFUSED, NONVERBAL, NOT RESPONDING TO HIS NAME. NO S/S OF ACUTE DISTRESS NOTED ON ROOM AIR. IV CATH NOTED TO R AC 20G, RUNNING D5 1/2NS AT 80ML/HR, ASYMPTOMATIC. TUBE FEEDING RUNNING OSMOLITE 60ML/HR, 250ML WATER FLUSH Q6H. BED IN LOWEST POSITION, SEMI-TORRE, PT IS ON LEFT HAND MITTEN RESTRAINT. G TUBE DRESSING IS CLEAN AND INTACT. BOWEL SOUNDS ACTIVE. ABD IS SOFT, LARGE AND ROUND. PT ON TELE. CALL LIGHT WITHIN REACH. WILL CONTINUE TO MONITOR.
--- NOTE | 2019-01-18 07:28 | NUR ---
ENDORSED TO NEXT SHIFT FOR CONTINUITY OF CARE
[2019-01-18 08:00] VITALS: BP 160/74
[2019-01-18] MEDS: LACTOBACILLUS RHAMNOSUS GG 1 EACH CAP PEG SCH (09:00)
[2019-01-18] MEDS: CLOPIDOGREL 75 MG TAB PEG SCH (09:00)
[2019-01-18] MEDS: METOPROLOL 50 MG TAB PEG SCH ×2 (09:00→21:00)
[2019-01-18] MEDS: amLODIPine 5 MG TAB PEG SCH ×2 (09:00→21:00)
[2019-01-18] MEDS: ASPIRIN 81 MG TAB.CHEW PEG SCH (09:00)
[2019-01-18] MEDS: BISACODYL 5 MG TABEC PEG SCH (09:01)
[2019-01-18] MEDS: DEXT 5% / NACL 0.45% 1,000 ML IV SCH (09:04)
--- NOTE | 2019-01-18 09:35 | NUR ---
BED BATH GIVEN, PT HAD BM X1, LOOSE STOOL, CHANGED LINENS AND CHUX. PT WAS REPOSITIONED.
--- NOTE | 2019-01-18 11:29 | NUR ---
FAXED CLINICAL INFORMATION TO [facility], [phone]. POS DC TOMORROW, MIRNA FROM [facility] AWARE.
--- NOTE | 2019-01-18 11:40 | NUR ---
PT WAS REPOSITIONED. PT TOLERATED WELL, NO S/S OF ACUTE DISTRESS.
[2019-01-18 12:00] VITALS: BP 164/78
--- NOTE | 2019-01-18 15:24 | NUR ---
01/18/19 RD FOLLOW UP COMPLETED PLEASE REFER TO NUTRITION ASSESSMENT UNDER CARE ACTIVITY FOR ESTIMATED NUTRITIONAL NEEDS. 1. CONTINUE OSMOLITE @ 60 ML/HR - THIS WILL PROVIDE 1440 ML TOTAL VOLUME, 2160 KCAL, 90 GM OF PROTEIN, AND 1097 ML OF FREE WATER, WHICH MEETS 97% OF ESTIMATED ENERGY NEEDS AND 100% OF ESTIMATED PROTEIN NEEDS. 2. CONTINUE 250 ML OF FREE WATER FLUSH Q6H 3. RD TO FOLLOW-UP 2-3 DAYS, HIGH RISK CHARMAINE MCDOWELL RD
--- NOTE | 2019-01-18 15:32 | NUR ---
BED BATH GIVEN, PT HAD BM X1, LOOSE STOOL, CHANGED ALL LINENS AND CHUX. PT WAS REPOSITIONED.
[2019-01-18 16:00] VITALS: BP 165/68
[2019-01-18 18:39] LABS: ANION GAP 8.9 (8-16); CARBON DIOXIDE 28.3 mmol/L (21-32); CREATININE 1.3 mg/dL (0.7-1.3); POTASSIUM 4.2 mmol/L (3.5-5.1)
--- NOTE | 2019-01-18 18:40 | NUR ---
MADE DR HARRISON AWARE PT'S SBP HAS BEEN AROUND 160 THROUGH OUT THE DAY, PT HAS BP MEDICATIONS SCHEDULED EVERY 4 HR, ASKED IF HE WANTS TO ADD ANYTHING EXTRA. MD WILL PUT IN ORDERS. ALSO RECOMMENDED HYDRAGUARD FOR PREVENT SKIN ISSUES FROM INCONTINENCE.
[2019-01-18] MEDS ORDERED: hydrALAZINE 20 MG/ML VIAL IVP ONE (18:55)
[2019-01-18] MEDS ORDERED: HYDRAGUARD CREAM TP PRN (18:55)
--- NOTE | 2019-01-18 19:10 | NUR ---
ENDORSED PT TO VINEGAR MAKER RN AT BEDSIDE FOR CONTINUITY OF CARE. PT IN STABLE CONDITION.
--- NOTE | 2019-01-18 19:11 | NUR ---
RECEIVED REPORT FROM AM SHIFT RN AT BEDSIDE FOR CONTINUITY CARE. PT ON TELE. PT OPENS EYES SPONTANEOUSLY, PT CONFUSED, NONVERBAL, NOT RESPONDING TO HIS NAME WITH RIGHT SIDED WEAKNESS NO S/S OF ACUTE DISTRESS NOTED ON ROOM AIR. IV CATH NOTED TO R AC 20G, RUNNING D5 1/2NS INTACT, ASYMPTOMATIC. TUBE FEEDING RUNNING OSMOLITE 60ML/HR, 250ML WATER FLUSH Q6H. BED IN LOWEST POSITION, SEMI-TORRE, PT IS ON LEFT HAND MITTEN RESTRAINT. G TUBE DRESSING IS CLEAN AND INTACT. BOWEL SOUNDS ACTIVE. CALL LIGHT WITHIN REACH. WILL CONTINUE TO MONITOR.
--- NOTE | 2019-01-18 19:34 | NUR ---
REASSESSMENT AFTER HYDRALAZINE PUSH; 133/58, 76 BPM
[2019-01-18 20:00] VITALS: BP 133/58
--- NOTE | 2019-01-18 21:40 | NUR ---
BP RESULT REPORTED TO DR. HARRISON BEFORE BP MEDS ADMINISTRATION IS: 112/63, HR 81, DR. HARRISON ORDERED TO WITHHOLD 3 BP MEDS NAMELY: CLONIDINE .1MG. AMLODIPINE 5MG AND METOPROLOL 50MG. WILL CARRY OUT DR. GLASS
[2019-01-18] MEDS: ATORVASTATIN 20 MG TAB PEG SCH (21:46)
[2019-01-19] VITALS: BP 135/65
--- NOTE | 2019-01-19 | NUR ---
BP 135/[address] HARRISON INFORMED. HOLD APRESOLINE FOR NOW. CARRIED OUT ORDERS
[2019-01-19] MEDS: DEXT 5% / NACL 0.45% 1,000 ML IV SCH (02:00)
[2019-01-19 04:00] VITALS: BP 138/58
[2019-01-19] MEDS: cloNIDine 0.1 MG TAB PO SCH ×2 (05:00→14:09)
--- NOTE | 2019-01-19 05:38 | NUR ---
BP AT 138/51 [facility]. DE [address] CATAPRES WITHHELD. DR. HARRISON AWARE
[2019-01-19] MEDS: hydrALAZINE 25 MG TAB PEG SCH ×3 (06:00→12:00)
--- NOTE | 2019-01-19 06:00 | NUR ---
STERLING HOLD PER DR. GLASS
[2019-01-19 07:35] LABS: BASOPHILS % (AUTO) 0.3 % (0.0-2.0); EOSINOPHILS # (AUTO) 0.1 K/uL (0-0.4); EOSINOPHILS % (AUTO) 1.3 % (0.0-4.0); HEMATOCRIT 29.5 % (36-52); HEMOGLOBIN 9.4 g/dL (12.0-18.0); LYMPHOCYTES # (AUTO) 0.9 K/uL (2.0-11.5); LYMPHOCYTES % (AUTO) 7.3 % (20.5-51.1); MEAN CORPUSCULAR HEMOGLOBIN 30 pg (27-31); MEAN CORPUSCULAR HGB CONC 32 g/dL (33-37); MEAN CORPUSCULAR VOLUME 92.6 fL (80-94); MONOCYTES # (AUTO) 0.8 K/uL (0.8-1.0); MONOCYTES % (AUTO) 6.7 % (1.7-9.3); NEUTROPHILS # (AUTO) 9.8 K/uL (1.8-7.7); NEUTROPHILS % (AUTO) 84.4 % (42.2-75.2); PLATELET COUNT (AUTO) 292 K/uL (140-450); RED BLOOD CELL COUNT(AUTO) 3.19 MIL/uL (4.20-6.10); RED CELL DISTRIBUTION WIDTH 14.9 % (11.6-13.7); WHITE BLOOD COUNT (AUTO) 11.6 K/uL (4.8-10.8)
--- NOTE | 2019-01-19 07:38 | NUR ---
ENDORSED TO [facility] FOR CONTINUITY OF CARE.
--- NOTE | 2019-01-19 07:40 | NUR ---
RECEIVED PT FROM INDUSTRIAL GAS SERVICE HELPER NURSE, PT IS AWAKE AND LYING ON THE BED, WITH SIDE RAILS UP AND CALL LIGHT WITHIN REACH, PT HAS A G0TUBE IN PLACE WITH A CONTINUOUS FEEDING OF OSMOLITE 1.5 NICK AT A RATE OF 60ML/HR WITH WATER FLUSH OF 250Q6H, PT HAS AN IV LINE ION THEN RT AC G. 20 WITH D51/2NS INFUSING AT A RATE OF 40ML/HR. PT IS NON-VERBAL. NO SIGN OF DISTRESS NOTED AND WILL MONITOR PT.
[2019-01-19 08:00] VITALS: BP 168/74
[2019-01-19 08:23] LABS: MAGNESIUM 2.5 mg/dL (1.8-2.4); PHOSPHORUS 3.1 mg/dL (2.5-4.9)
[2019-01-19 08:28] LABS: ANION GAP 13.5 (8-16); CARBON DIOXIDE 24.5 mmol/L (21-32); CREATININE 1.3 mg/dL (0.7-1.3)
[2019-01-19] MEDS ORDERED: ROC250I IV (08:58)
[2019-01-19] MEDS: BISACODYL 5 MG TABEC PEG SCH (09:42)
[2019-01-19] MEDS: LACTOBACILLUS RHAMNOSUS GG 1 EACH CAP PEG SCH (09:42)
[2019-01-19] MEDS: ASPIRIN 81 MG TAB.CHEW PEG SCH (09:42)
[2019-01-19] MEDS: CLOPIDOGREL 75 MG TAB PEG SCH (09:43)
[2019-01-19] MEDS: amLODIPine 5 MG TAB PEG SCH (09:43)
[2019-01-19] MEDS: METOPROLOL 50 MG TAB PEG SCH (09:48)
--- NOTE | 2019-01-19 09:50 | NUR ---
PT WAS CLEANED AND REPOSITIONED WITH THE HELP OF MARY ATKINS AND TWO STUDENTS, MADE COMFORTABLE TO THE BED, PT TOLERATED THE MEDICATIONS VIA G-TUBE AND NO RESIDUAL NOTED. WILL MONITOR PT.
[2019-01-19 12:00] VITALS: BP 126/65
--- NOTE | 2019-01-19 13:23 | NUR ---
RECEIVED A CALL FROM [facility] AND INFORMED THAT PT WILL BE TRANSPORTED VIA [facility] AT 1500 AND THAT PT WILL GO BACK TO RM 16-C UNDER THE SERVICE OF CRISTIANO CANNON.
--- NOTE | 2019-01-19 13:23 | NUR ---
Spoke with Quentin ext [phone] from [facility], pt auth# for [facility] is [id number].
--- NOTE | 2019-01-19 13:27 | NUR ---
Spoke with Mary Hilario CM from [facility]. Per Mary pt is going to room 16 C.
--- NOTE | 2019-01-19 13:29 | NUR ---
Arranged transportation with [facility] and the pt will be picked up at 1500 from room 124A. Pt will be transported to [facility] to room 16 C. Perera RN informed and will have the pt ready for transfer.
--- NOTE | 2019-01-19 14:23 | NUR ---
CALLED PT'S BROTHER AND INFORMED THAT PT WILL BE TRANSFERRED BACK TO [facility] TODAY AT 1500.
--- NOTE | 2019-01-19 14:25 | NUR ---
CALLED [facility] AND GAVE REPORT TO GORDON FOWLER REGARDING THE PT.
[2019-01-19 15:25] VITALS: BP 120/62
--- NOTE | 2019-01-19 15:25 | NUR ---
DISCHARGED PT VIA GURNEY WITH [facility], G-TUBE INTACT AND IN PLACE WITH ABDOMINAL BINDER, IV LINE AND ARM BANDS REMOVED, [facility] PERSONNEL WAS NOTIFIED TO SEE TO IT THAT PT DOES NOT PULL ON HIS G-TUBE, G-TUBE REINFORCED WITH GAUZE DRESSING, NO DISCHARGE NOTED. PT IS STABLE AT THIS TIME.
== END 2019-01-19 15:25 | DRG 393 ==
LOC: MED 22:19 → MTU 01-15 02:34 → MMU 01-16 12:39 → MTU 01-17 13:53
PROVIDERS: ADMIT General Practice; ATTEND General Practice
PROC: 0DH63UZ Insertion of Feeding Device into Stomach, Percutaneous Approach (ICD-10-PCS; principal; 2019-01-18)
DX: K94.23 Gastrostomy malfunction (principal); A41.9 Sepsis, unspecified organism; N17.0 Acute kidney failure with tubular necrosis; I21.A1 Myocardial infarction type 2; R65.21 Severe sepsis with septic shock; N39.0 Urinary tract infection, site not specified; E44.0 Moderate protein-calorie malnutrition; E87.0 Hyperosmolality and hypernatremia; G82.20 Paraplegia, unspecified; J98.11 Atelectasis; Y83.8 Other surgical procedures as the cause of abnormal reaction of the patient, or of later complication, without mention of misadventure at the time of the procedure; E11.9 Type 2 diabetes mellitus without complications; I11.9 Hypertensive heart disease without heart failure; E78.5 Hyperlipidemia, unspecified; G47.33 Obstructive sleep apnea (adult) (pediatric); E83.41 Hypermagnesemia; E03.9 Hypothyroidism, unspecified; K59.00 Constipation, unspecified; E66.9 Obesity, unspecified; J32.0 Chronic maxillary sinusitis; Z68.32 Body mass index [BMI] 32.0-32.9, adult; Z79.82 Long term (current) use of aspirin; Z79.02 Long term (current) use of antithrombotics/antiplatelets; Z79.899 Other long term (current) drug therapy; I69.320 Aphasia following cerebral infarction; I69.321 Dysphasia following cerebral infarction; Z79.84 Long term (current) use of oral hypoglycemic drugs
CPT/HCPCS: 36415; 70450; 71045; 74241; 80048; 80053; 80305; 81001; 82150; 83036; 83605; 83690; 83735; 83880; 84100; 84436; 84443; 84484; 85025; 85610; 85730; 87040; 87081; 87086; 87186; 93005; 96361; 96374; 99285; C1758; J0360; J0696; J1644; J2060; J2543; J7030; J7042; J7060; J7620; Q0092; Q9967

== ENCOUNTER 2019-01-19 16:39 | Inpatient (IN) | payer BC, MEDICAID ==
[~2019-01-19] VITALS: Ht 172.7 cm; Wt 90.7 kg
[~2019-01-19 16:39] MED LIST: AMLO5TAB PEG; ASPI-1718 PEG; ATOR40TA PEG; CLOP75TA55 PEG; HYDR100T79 PEG; LORA-476 PEG; METO50TA21 PEG; METO50TE2 PEG; MODA200T52 PEG; ROC250I IV
[2019-01-19 16:48] VITALS: BP 134/70
--- NOTE | 2019-01-19 17:00 | NUR ---
68 YO MALE [place] [facility] [place]. PER EMS, PT G-TUBE IS BLEEDING. PT IS ALERT, AWARE, NON-VERBAL AT BASE LINE, GCS 13 AT THIS TIME, PT ABDOMEN IS ROUND AND EXTENDED, HARD, LBM UNKNOWN AT THIS TIME, G-TUBE SITE NOT BLEED OR RED, PT DOES HAVE SOME DRIED OLD BLOOD AT HE G-TUBE, NO NEW RED BLOOD AT THE SITE AT THIS TIME. PT WAS HERE EARLIER TODAY, VSS AT THIS TIME, BED DOWN, LOW, LOCKED, BEDRAIL UP X 1 , ER MD AWARE AND NOTIFIED OF PT STATUS. PMH: STROKE RX; SEE MED LIST
--- NOTE | 2019-01-19 18:05 | NUR ---
Patient being evaluated by physician at bedside.
--- NOTE | 2019-01-19 18:10 | NUR ---
G-TUBE 20F AT BEDSIDE PER LONA EISENBERG
[2019-01-19] MEDS ORDERED: LIDOCAINE VISCOUS 2% 20 ML UDC PO ONE (18:25)
[2019-01-19] MEDS ORDERED: FAMOTIDINE 20 MG/2 ML VIAL IVP ONE (18:30)
[2019-01-19] MEDS ORDERED: MULTIVITAMIN-12 10 ML, THIAMINE 100 MG, MAGNESIUM SULFATE 50% 2,000 MG, FOLIC ACID 5 MG... IV ONE ×5 (18:30)
[2019-01-19] MEDS ORDERED: PANTOPRAZOLE 40 MG INJ VIAL IVP ONE (18:30)
[2019-01-19] MEDS ORDERED: NACL 0.9% 1,000 ML IV ONE (18:30)
[2019-01-19] MEDS ORDERED: METOCLOPRAMIDE 10 MG/2 ML INJ VIAL IVP ONE (18:30)
[2019-01-19] MEDS ORDERED: ONDANSETRON 4 MG/2 ML VIAL IVP ONE (18:30)
[2019-01-19] MEDS ORDERED: LACTULOSE 20 GM/30 ML UDC PO ONE (18:30)
[2019-01-19] MEDS ORDERED: SODIUM PHOSPHATE 118 ML ENEM RC ONE (18:30)
[2019-01-19] MEDS ORDERED: NACL 0.9% 1,000 ML IV SCH (18:30)
[2019-01-19] MEDS ORDERED: THIAMINE 200 MG/2 ML VIAL ONE (18:57)
[2019-01-19] MEDS ORDERED: MULTIVITAMIN-12 10 ML VIAL IV ONE (18:57)
[2019-01-19] MEDS ORDERED: FOLIC ACID 5 MG/ML SYR ONE (18:57)
--- NOTE | 2019-01-19 19:19 | NUR ---
gave pt folic acid ivp to pt in right ac
--- NOTE | 2019-01-19 19:24 | NUR ---
pt given thiamine in left deltiod im
[2019-01-19] MEDS ORDERED: MORPHINE SULFATE 2 MG/ML SYR IVP PRN (19:30)
[2019-01-19] MEDS ORDERED: DOCUSATE SODIUM 100 MG GELCAP PO PRN (19:30)
[2019-01-19] MEDS ORDERED: ONDANSETRON 4 MG/2 ML VIAL IM/IVP PRN (19:30)
[2019-01-19] MEDS ORDERED: ACETAMINOPHEN 325 MG TAB PO PRN (19:30)
[2019-01-19] MEDS ORDERED: HYDROcodone/APAP 5/325 MG 1 TAB TAB PO PRN (19:30)
--- NOTE | 2019-01-19 19:30 | NUR ---
Received report from ANABELLA Brown. Pt found lying in [facility] bed, NAD noted. VSS. Patient is pending to be admitted to hospital.
--- NOTE | 2019-01-19 20:40 | NUR ---
Patient will be admitted to care of DR. GARCIA. Admited to Med/Surg. Will go to room 124-B. Belongings list completed. Report to LATONIA KYLE.
[2019-01-19 20:42] VITALS: BP 146/73
--- NOTE | 2019-01-19 20:42 | NUR ---
RECEIVED REPORT FROM ER NURSE AT BEDSIDE FOR CONTINUITY OF CARE. PT AAOX0. PT IV NOTED RAC 20G NS 100ML/HR. NO SOB NO S/S OF DISTRESS ON RA. BED LOWERED. PT IS FALL RISK. RIGHT SIDED WEAKNESS. BED LOWERED CALL LIGHT WITHIN REACH WILL CONTINUE TO MONITOR.
[2019-01-19] MEDS: DEXT 5% / NACL 0.45% 1,000 ML IV SCH (21:41)
[2019-01-19 22:40] LABS: HEMATOCRIT 22.9 % (36-52); HEMOGLOBIN 7.2 g/dL (12.0-18.0); MEAN CORPUSCULAR HEMOGLOBIN 30 pg (27-31); MEAN CORPUSCULAR HGB CONC 31 g/dL (33-37); MEAN CORPUSCULAR VOLUME 93.8 fL (80-94); PLATELET COUNT (AUTO) 302 K/uL (140-450); RED BLOOD CELL COUNT(AUTO) 2.44 MIL/uL (4.20-6.10); RED CELL DISTRIBUTION WIDTH 14.7 % (11.6-13.7)
[2019-01-19 22:57] LABS: ALBUMIN 2.1 g/dL (3.4-5.0); ANION GAP 17.3 (8-16); CARBON DIOXIDE 21.2 mmol/L (21-32); POTASSIUM 4.5 mmol/L (3.5-5.1); TOTAL BILIRUBIN 0.5 mg/dL (0.0-1.0)
[2019-01-19 23:05] LABS: PROTHROMBIN TIME 9.8 secs (10.8-13.4)
[2019-01-19 23:08] LABS: MAGNESIUM 2.6 mg/dL (1.8-2.4); PHOSPHORUS 4.3 mg/dL (2.5-4.9); THYROID STIMULATING HORMONE 2.89 uIU/mL (0.34-3.74)
[2019-01-19 23:23] LABS: LYMPHOCYTES % (MANUAL) 4 % (20-46)
[2019-01-19] MEDS ORDERED: ALBUTEROL SULFATE/IPRATROPIU 3 ML SOL IH PRN (23:35)
[2019-01-19] MEDS ORDERED: NITROGLYCERIN 0.4 MG TAB SL PRN (23:45)
[2019-01-20] MEDS ORDERED: PIPERACILLIN/TAZOBACTAM 2.25 GM VIAL IV ONE ×2 (00:37→06:38)
[2019-01-20] MEDS: PIPER/TAZO 2.25GM/D5W PREMIX 50 ML IV SCH ×3 (00:53→12:04)
[2019-01-20] MEDS: hydrALAZINE 25 MG TAB PEG SCH ×2 (00:54→06:40)
[2019-01-20] MEDS ORDERED: Z-GUARD PASTE TP SCH (03:30)
[2019-01-20] MEDS: DEXT 5% / NACL 0.45% 1,000 ML IV SCH (06:41)
[2019-01-20] MEDS ORDERED: LORazepam 1 MG TAB PEG SCH ×2 (07:00→07:13)
[2019-01-20] MEDS ORDERED: hydrALAZINE 25 MG TAB PEG SCH (07:12)
--- NOTE | 2019-01-20 07:30 | NUR ---
ENDORSED REPORT TO DAYSHIFT NURSE AT BEDSIDE FOR CONTINUITY OF CARE.
--- NOTE | 2019-01-20 07:30 | NUR ---
ENDORSED REPORT TO DAYSHIFT NURSE AT BEDSIDE FOR CONTINUITY OF CARE.
--- NOTE | 2019-01-20 07:31 | NUR ---
Received report from pm nurse Zarate. Pt asleep, no signs of distress.
[2019-01-20 08:00] VITALS: BP 120/67
[2019-01-20 08:23] LABS: MEAN CORPUSCULAR HEMOGLOBIN 29 pg (27-31); MEAN CORPUSCULAR HGB CONC 31 g/dL (33-37); MEAN CORPUSCULAR VOLUME 94.2 fL (80-94); PLATELET COUNT (AUTO) 287 K/uL (140-450); RED BLOOD CELL COUNT(AUTO) 1.92 MIL/uL (4.20-6.10); RED CELL DISTRIBUTION WIDTH 14.6 % (11.6-13.7); WHITE BLOOD COUNT (AUTO) 24.8 K/uL (4.8-10.8)
[2019-01-20 08:28] LABS: HEMOGLOBIN 5.6 g/dL (12.0-18.0)
--- NOTE | 2019-01-20 08:30 | NUR ---
Pt with white foamy saliva, oral care provided. Respirations even & nonlabored, FLACC 0. Will continue to monitor.
[2019-01-20 08:46] LABS: LYMPHOCYTES % (MANUAL) 10 % (20-46); MONOCYTES % (MANUAL) 5 % (5-12)
[2019-01-20] MEDS ORDERED: LACTOBACILLUS RHAMNOSUS GG 1 EACH CAP PO SCH (09:00)
[2019-01-20] MEDS ORDERED: METOPROLOL 50 MG TAB PEG SCH (09:00)
[2019-01-20] MEDS ORDERED: ASPIRIN 81 MG TAB.CHEW PEG SCH (09:00)
[2019-01-20] MEDS ORDERED: LACTOBACILLUS RHAMNOSUS GG 1 EACH CAP PEG SCH (09:00)
[2019-01-20] MEDS ORDERED: amLODIPine 5 MG TAB PEG SCH (09:00)
[2019-01-20] MEDS ORDERED: LORazepam 2 MG/ML VIAL IVP SCH ×2 (09:00→11:15)
[2019-01-20 09:05] LABS: ANION GAP 15.3 (8-16); CREATININE 2.9 mg/dL (0.7-1.3); MAGNESIUM 2.5 mg/dL (1.8-2.4); PHOSPHORUS 3.2 mg/dL (2.5-4.9); POTASSIUM 4.3 mmol/L (3.5-5.1)
[2019-01-20] MEDS ORDERED: NACL 0.9% 1,000 ML IV SCH (09:25)
--- NOTE | 2019-01-20 09:30 | NUR ---
Left voicemail to brother Delroy re: order for central venous cath insertion & blood transfusion. Awaiting call back.
[2019-01-20 10:00] VITALS: BP 105/64
[2019-01-20] MEDS ORDERED: OCTREOTIDE ACETATE 1.25 MG in NACL 0.9% 250 ML IV SCH (10:00)
--- NOTE | 2019-01-20 10:00 | NUR ---
Dr. Davis at bedside to assess pt.
--- NOTE | 2019-01-20 10:29 | NUR ---
PATIENT HAS BEEN SCREENED AND CATEGORIZED HIGH NUTRITION RISK. PATIENT WILL BE SEEN WITHIN 1-2 DAYS OF ADMISSION. 01/20/19-01/21/[address]
--- NOTE | 2019-01-20 10:35 | NUR ---
Pt transferred to ICU via hospital bed, report given to ICU nurse Melinda. All belongings with pt. Pt transferred from bed to bed via 4-person total assist. Left wrist soft restraint in place.
--- NOTE | 2019-01-20 10:36 | NUR ---
RECEIVED PATIENT FROM [facility] RN FOR CONTINUITY OF CARE. PATIENT IS AWAKE, UNABLE TO FOLLOW COMMANDS OR MAKE NEEDS KNOWN. SKIN INTACT, PERIPHERAL IV SITE TO R.AC 20 GAUGE, ASYMPTOMATIC AND PATENT. ON ROOM AIR AT 100% O2 SAT, ST ON MONITOR. GTUBE IN PLACE. HOB SEMI FOWLERS, NO SIGNS OF DISTRESS NOTED AT THIS TIME.
--- NOTE | 2019-01-20 10:50 | NUR ---
CALLED PATIENT'S BROTHER CULLEN MARTIN FOR BLOOD TRANSFUSION AND CENTRAL LINE PLACEMENT CONSENTS. HE STATED "IT IS OK WITH ME IF HE NEEDS IT." VERIFIED WITH ANOTHER RN.
--- NOTE | 2019-01-20 10:50 | NUR ---
RECEIVED TELEPHONE CONSENT FOR BLOOD TRANSFUSION AND CENTRAL LINE PLACEMENT FROM PATIENT'S BROTHER, WITNESSED BY FITTER MACHINISTSELMA.
--- NOTE | 2019-01-20 10:55 | NUR ---
REVIEWED HEMATOLOGY @ [address] DAVID SNEED AWARE NO HHN PRN THERAPY GIVEN AT THIS TIME
[2019-01-20] MEDS ORDERED: LORazepam 2 MG/ML VIAL ONE ×2 (11:14→11:22)
--- NOTE | 2019-01-20 11:25 | NUR ---
DR. SNEED IN TO DO CENTRAL LINE PLACEMENT, US TECH AT BEDSIDE. WILL CONTINUE TO MONITOR
--- NOTE | 2019-01-20 11:45 | NUR ---
PATIENT TOLERATED PROCEDURE WELL, NO SIGNS OF DISTRESS NOTED. IN TUBE CONVERSION TECHNICIAN AT BEDSIDE.
[2019-01-20 12:00] VITALS: BP 103/52
[2019-01-20] MEDS ORDERED: SUCRALFATE 1 GM TAB GT SCH (12:00)
[2019-01-20] MEDS ORDERED: HYDROcodone/APAP 5/325 MG 1 TAB TAB PO SCH (12:00)
[2019-01-20] MEDS ORDERED: ACETAMINOPHEN 325 MG TAB PO SCH ×2 (12:00→16:00)
[2019-01-20] MEDS ORDERED: PANTOPRAZOLE 80 MG in NACL 0.9% 100 ML IV SCH (12:00)
--- NOTE | 2019-01-20 12:25 | NUR ---
INSERTED L[employer]PEZ CATHETER 16 [place], PATIENT TOLERATED WELL.
--- NOTE | 2019-01-20 13:08 | NUR ---
RECEIVED ORDER OK TO USE CENTRAL LINE, PICKED UP BLOOD FROM LAB FOR BLOOD TRANSFUSION
--- NOTE | 2019-01-20 13:15 | NUR ---
DR. SNEED UPDATED PATIENT'S BROTHER CULLEN AT [phone] OF PATIENT'S CONDITION.
--- NOTE | 2019-01-20 13:17 | NUR ---
JAQUELINE FERNÁNDEZ CALLED AT 1309, 1 DOSE OF ATROPINE GIVEN, 1 DOSE OF EPI GIVEN, PATIENT HAD A PULSE, BP WAS 107/78, PATIENT WAS INTUBATED BY ER
--- NOTE | 2019-01-20 13:20 | NUR ---
PATIENT STARTED ON BLOOD TRANSFUSION, 2 UNITS OF BLOOD RUNNING INTO CENTRAL LINE. NO S/S OF REACTION NOTED. WILL CONTINUE TO MONITOR
--- NOTE | 2019-01-20 13:22 | NUR ---
ANOTHER 2 UNITS OF BLOOD TRANSFUSION STARTED, VERIFIED WITH ANOTHER RN, NO S/S OF REACTION NOTED, WILL CONTINUE TO MONITOR.
--- NOTE | 2019-01-20 13:55 | NUR ---
CODE [facility] WAS CALLED AT 1338, PATIENT WENT INTO ASYSTOLE, CPR INITIATED BY CHAIN REPAIRER, AMBU BAGGED BY RT, 2 ROUNDS OF EPI GIVEN, PATIENT WENT INTO VFIB, 2 ROUNDS OF CPR WITH SHOCK GIVEN THEN PATIENT WENT INTO ASYSTOLE, DR. WHITLEY PRONOUNCED TIME OF AT 1354.
--- NOTE | 2019-01-20 14:00 | NUR ---
CALLED PATIENT'S BROTHER CULLEN AND MADE AWARE OF THE PATIENT'S DEMISE. DR. SNEED SPOKE WITH HIM WELL. PATIENT'S BROTHER STATED THAT HE WILL CALL US BACK IN FEW HOURS REGARDING MORTUARY ARRANGEMENTS. I ALSO EXPLAINED TO HIM THAT WE DO NOT HAVE A MORGUE HERE AND WE CAN ONLY KEEP THE REMAINS FOR AT LEAST 6 HOURS. HE VERBALIZED UNDERSTANDING BY STATING "I WILL CALL YOU BACK BEFORE THEN."
--- NOTE | 2019-01-20 14:05 | NUR ---
CALLED [facility], [facility] WILL NOT BE PURSUING WITH [employer]GAN DONATION .
--- NOTE | 2019-01-20 14:10 | NUR ---
AROUND 1305 CODE WAS CALLED PT INTUBATED ETT 8.0 27 @ THE LIP BY . PT PLACED ON AC 14 500 +5 50% SAT 100 HR 56 RR 14 @ 1325. @ ABOUT 1340 PT BECAME PULSELESS ANOTHER CODE WAS CALLED PT BAGGED FIO2 100%. CODE CALLED AROUND 1350.
--- NOTE | 2019-01-20 14:25 | NUR ---
CALLED [facility] OFFICE AND INFORMED THEM OF PATIENT'S DEMISE. SHE STATED "AN OFFICER WILL CALL US BACK.
--- NOTE | 2019-01-20 16:16 | NUR ---
RECEIVED CALL FROM [facility] AND SPOKE WITH HETALUTGiovani MOE, STATES THAT PATIENT'S BODY CAN BE RELEASED AND THE PATIENT IS NOT A CANDIDATE FOR [facility]PORATE [employer]ORD[facility] CASE AND DUE TO THEIR NEW POLICY THEY WILL NOT GIVE A CASE NUMBER IF THE BODY IS NOT A CORPORATE COORD[employer]ATOR'S CASE.
--- NOTE | 2019-01-20 16:30 | NUR ---
RECEIVE A CALL FROM PATIENT'S BROTHER CULLEN, HE GAVE ME INFORMATION REGARDING MORTUARY SERVICES. [facility], [address], [place], [place]. TEL NUMBER [phone]. WILL CALL.
--- NOTE | 2019-01-20 16:45 | NUR ---
CONTACTED [facility] AT [phone], ABLE TO SPEAK TO CLEVE. ETA WILL BE 2 HOURS.
--- NOTE | 2019-01-20 18:00 | NUR ---
MORTUARY REP FROM [facility] IS HERE TO SALES LEDGER ADMINISTRATOR PATIENT'S BODY.
[2019-01-20] MEDS ORDERED: ALBUTEROL SULFATE/IPRATROPIU 3 ML SOL IH SCH (19:00)
[2019-01-20] MEDS ORDERED: FUROSEMIDE 20 MG TAB PO SCH (20:00)
[2019-01-20] MEDS ORDERED: ATORVASTATIN 20 MG TAB PEG SCH (21:00)
[2019-01-21 08:19] LABS: FOLIC ACID > 20.00 ng/mL (>3.0)
[2019-01-21] MEDS ORDERED: FUROSEMIDE 20 MG/2 ML VIAL IVP SCH (09:00)
[2019-01-23 17:48] LABS: FERRITIN 1655 ng/mL (30 - 400); TRANSFERRIN 153 mg/dL (200 - 370)
== END 2019-01-20 18:00 | disposition expired | DRG 871 ==
LOC: MED 16:39 → MTU 19:27 → MIC 01-20 10:35
PROVIDERS: ADMIT General Practice; ATTEND General Practice
PROC: 30233N1 Transfusion of Nonautologous Red Blood Cells into Peripheral Vein, Percutaneous Approach (ICD-10-PCS; principal; 2019-01-19)
PROC: 0DH63UZ Insertion of Feeding Device into Stomach, Percutaneous Approach (ICD-10-PCS; 2019-01-19)
PROC: 5A12012 Performance of Cardiac Output, Single, Manual (ICD-10-PCS; 2019-01-19)
PROC: 02HV33Z Insertion of Infusion Device into Superior Vena Cava, Percutaneous Approach (ICD-10-PCS; 2019-01-20)
DX: A41.9 Sepsis, unspecified organism (principal); I21.A1 Myocardial infarction type 2; N17.0 Acute kidney failure with tubular necrosis; N39.0 Urinary tract infection, site not specified; E46 Unspecified protein-calorie malnutrition; E87.0 Hyperosmolality and hypernatremia; K92.2 Gastrointestinal hemorrhage, unspecified; K94.21 Gastrostomy hemorrhage; Z68.30 Body mass index [BMI] 30.0-30.9, adult; I10 Essential (primary) hypertension; E78.5 Hyperlipidemia, unspecified; M10.9 Gout, unspecified; Z86.73 Personal history of transient ischemic attack (TIA), and cerebral infarction without residual deficits; D64.9 Anemia, unspecified; E83.41 Hypermagnesemia; G47.33 Obstructive sleep apnea (adult) (pediatric); I46.9 Cardiac arrest, cause unspecified; R57.1 Hypovolemic shock; Y65.8 Other specified misadventures during surgical and medical care; Y82.8 Other medical devices associated with adverse incidents
CPT/HCPCS: 36415; 43762; 71045; 80048; 80053; 82150; 82607; 82728; 82746; 83540; 83605; 83690; 83735; 83880; 84100; 84436; 84443; 84484; 85025; 85045; 85610; 85730; 86886; 86900; 86901; 86920; 87040; 87081; 93005; 96361; 96374; 96375; 99285; A9153; C9113; J0696; J1642; J2060; J2354; J2405; J2543; J2765; J3411; J3490; J7030; J7060; P9016; Q0092